=== PATIENT | male | born 1995 | race Caucasian/White ===

== ENCOUNTER 2016-08-20 00:32 | Emergency (ER) | payer BC, OTHER ==
[~2016-08-20] VITALS: Ht 182.9 cm; Wt 139.6 kg
[~2016-08-20 00:32] MED LIST: CEPH-507 PO; IBUP-788 PO
--- OUTSIDE RECORDS SUMMARY | 2016-08-20 00:36 | XMS REPORT | Continuity of Care Document ---
Author Author [facility] Address Unknown Phone Unavailable Support Name Relationship Address Phone MARISELA CARDONA Next Of Kin [phone] [place] [id number] Insurance Providers Payer Name Policy Number Subscriber Name Relationship Workmans Comp Other [id number] Mukund Gonzales 17 Self / Same As Patient Problems No Known Problems or Medical conditions. Allergies, Adverse Reactions, Alerts Allergen Type Severity Reaction Last Updated No Known Drug Allergies 06/01/13 Medications Medication Dose Units Route Sig Qty Days Cephalexin (Keflex) 2 Tab.sa PO BID WITH MEALS 28 Ibuprofen (Motrin) 800 Mg PO q 8 hrs PRN 20 Response Recorded Date/Time Status not known Unknown Results No Known Relevant Diagnostic Tests, Laboratory Data and/or Discharge Summary. Encounters Encounter Location Date/Time Departed Emergency Room [facility] 06/01/13 6:16pm
[2016-08-20] MEDS ORDERED: TRAM-291ED PO (01:02)
[2016-08-20] MEDS ORDERED: VARE1TAB22 PO (01:02)
[2016-08-20] MEDS ORDERED: SODIUM CHLORIDE FLUSH 3 ML SYR IV PRN (01:15)
[2016-08-20] MEDS ORDERED: LORazepam 2 MG/ML (ATIVAN) 1 ML VIAL IV ONE (01:15)
[2016-08-20] MEDS ORDERED: SODIUM CHLORIDE FLUSH 10 ML SYR IV PRN (01:15)
[2016-08-20] MEDS ORDERED: KETOROLAC 30 MG/ML (TORADOL) 1 ML VIAL IV ONE (01:15)
[2016-08-20] MEDS ORDERED: SODIUM CHLORIDE 250 ML IV PRN (01:15)
[2016-08-20] MEDS ORDERED: ALBUTEROL/IPRATROPIUM 3MG-0.5MG/3ML (DUONEB) NEB VIAL INH ONE (01:15)
[2016-08-20 01:57] LABS: ALBUMIN 4.3 g/dL (3.4-5.0); ALKALINE PHOSPHATASE 129 U/L (38-126); ANION GAP 14.3 MEQ/L (3-15); BUN/CREATININE RATIO 15 (10-20); CALCULATED IONIZED CALCIUM 4.2 mg/dL (3.8-4.6); TOTAL PROTEIN 7.2 g/dL (6.4-8.5)
[2016-08-20 02:05] LABS: BASOPHILS % (AUTO) 1 % (0-2); EOSINOPHILS # (AUTO) 0.1 10^3uL; EOSINOPHILS % (AUTO) 1 % (0-4); LYMPHOCYTES # (AUTO) 2.4 X10^3; MEAN CORPUSCULAR VOLUME 88 FL (80-100); MEAN PLATELET VOLUME 11.2 FL (6.0-9.5); MONOCYTES # (AUTO) 0.9 X10^3; MONOCYTES % (AUTO) 7 % (3-11); NEUTROPHILS % (AUTO) 70 % (51-67); PLATELET COUNT 162 10^3uL (150-450); WHITE BLOOD COUNT 11.44 10^3uL (4.0-11.0)
[2016-08-20 02:06] LABS: CREATINE KINASE 276 U/L (55-170)
[2016-08-20 02:12] LABS: MEAN CORPUSCULAR HEMOGLOBIN 31.8 PG (26.0-34.0); MEAN CORPUSCULAR HGB CONC 36.1 g/dL (31.0-37.0)
--- NOTE | 2016-08-20 02:15 | NUR ---
called and reported elevated CK to Dr Little
[2016-08-20] MEDS ORDERED: ALBU8.5H6 IH (02:26)
[2016-08-20 02:32] LABS: BILIRUBIN,URINE Negative (Negative); CLARITY,URINE Clear; COLOR,URINE Yellow; GLUCOSE, URINE (UA) Negative (Negative); LEUKOCYTE ESTERASE ,URINE Negative (Negative); UROBILINOGEN,URINE 0.2 mg/dL (0.2-1.0)
[2016-08-20 02:41] VITALS: BP 122/65
[2016-08-20 02:43] LABS: AMPHETAMINE SCREEN, URINE Negative (Negative); CANNABINOID SCREEN, URINE Negative (Negative); METHAMPHETAMINE SCREEN URINE S NEGATIVE (NEGATIVE); OPIATE SCREEN URINE Negative (Negative); PROPOXYPHENE STAT NEGATIVE (NEGATIVE)
--- NOTE | 2016-08-20 08:07 | Diagnostic Imaging Report ---
CHEST PA/LAT (2 VIEW)* Indication: Chest pain. Evaluate for pneumothorax. Technique: PA views in inspiration and expiration, as well as lateral views of the chest. Comparison: None available. Findings: No focal pneumonic consolidation, pleural effusion or pneumothorax. Normal heart size and pulmonary vasculature. Impression: No acute cardiopulmonary process. Dictated by: Dictated on workstation # [id number]
== END 2016-08-20 02:42 | disposition home or self-care (01) ==
LOC: ED 00:38
DX: M94.0 Chondrocostal junction syndrome [Tietze] (principal); J45.909 Unspecified asthma, uncomplicated; F17.210 Nicotine dependence, cigarettes, uncomplicated
CPT/HCPCS: 36415; 71020; 80053; 80307; 81003; 82550; 82553; 83880; 84484; 85025; 85379; 85610; 85730; 93005; 94640; 96374; 96375; 99285; J1885; J2060; J7050; 93010; 99284